=== PATIENT | female | born 1950 | race Caucasian/White ===

== ENCOUNTER → 2020-05-30 | Outpatient (CLI) | payer MEDICARE ==
--- NOTE | 2020-05-30 16:46 | RAD ---
DATE: 05/30/2020 10:20 AM EXAM: MAMMO ROZINA SCREENING BILATERAL HISTORY: Screening COMPARISON: 05/12/2019 Bilateral CC and MLO views of the breasts were performed. Bilateral breast tomosynthesis was performed in CC and MLO projections. This study was interpreted with the benefit of Computerized Aided Detection (CAD). FINDINGS: Breast Density: SCATTERED The breast parenchyma shows scattered fibroglandular densities. Breast parenchyma level B No suspicious masses, microcalcifications or architectural distortion is present to suggest malignancy in either breast. The visualized axillae are unremarkable. IMPRESSION: No mammographic evidence of malignancy. BI-RADS CATEGORY: 1 NEGATIVE RECOMMENDED FOLLOW-UP: 12M 12 MONTH FOLLOW-UP Annual screening mammography is recommended, unless clinically indicated sooner based on symptoms or change in physical exam. PQRS compliance statement: Patient information was entered into a reminder system with a target due date 05/31/2021 for the next mammogram. Mammography is a sensitive method for finding small breast cancers, but it does not detect them all and is not a substitute for careful clinical examination. A negative mammogram does not negate a clinically suspicious finding and should not result in delay in biopsying a clinically suspicious abnormality. "Our facility is accredited by the [employer] Mammography Program."
== END ==
LOC: MAMMO 09:57
PROVIDERS: ATTEND Family Medicine
DX: Z12.31 Encounter for screening mammogram for malignant neoplasm of breast (principal)
CPT/HCPCS: 77063; 77067

== ENCOUNTER → 2020-08-16 | Outpatient (CLI) | payer MEDICARE, OTHER ==
--- NOTE | 2020-08-16 11:07 | RAD ---
Bone mineral density exam History: Postmenopausal Comparison: None Findings: Bone mineral density examination utilizing DEXA was performed. Right hip bone mineral density of 833 mg/cm2 corresponds with a T score -1.0, Z score 0.5. The bone mineral density of the lumbar spine was 1.030 g/cm2 which corresponds with a T-score of -1.3, Z score 0.3. By World [employer] on Osteoporosis criteria, a T score of 0 to-1 SD is considered to be within normal limits. A T score of -1 to -2.5 SD is considered osteopenia. A T score less than -2.5 SD is considered osteoporosis Impression: 1. There is osteopenia of the lumbar spine. Bone mineral density of the right hip corresponds with borderline between normal and osteopenia. Electronically signed by: Jim Harper MD (08/16/2020 11:04 AM) [id number]
--- NOTE | 2020-08-16 11:28 | RAD ---
CT LOW DOSE LUNG SCREENING INDICATION: SMOKER, ANNUAL CHECK UP COMPARISON STUDY: None. TECHNIQUE: Unenhanced axial images were obtained through the lungs and upper abdomen using low dose technique. Coronal and sagittal multiplanar reformatted images were also obtained. PQRS compliance statement: One or more of the following individualized dose reduction techniques were utilized for this examination: 1. Automated exposure control 2. Adjustment of the mA and/or kV according to patient size 3. Use of iterative reconstruction technique FINDINGS: Lung Nodules: Few small indeterminate pulmonary nodules with mortician supplies sales representative nodules as follows: Right upper lobe 4 mm nodule (series 6 image 103) and left lower lobe 3 mm nodule (image 108). Lungs and Airways: No pulmonary mass or consolidation. Centrilobular emphysema. Normal central airways. Pleura: Normal pleural spaces. Heart and Mediastinum: The visualized portions of the thyroid gland are normal in size and attenuation. No axillary or supraclavicular lymphadenopathy. Mildly enlarged AP window lymph node measures 1.1 cm short axis (series 6 image 91). Normal cardiac size. No pericardial effusion. Coronary artery atherosclerotic disease. Atherosclerosis of the thoracic aorta. Abdomen: Cholelithiasis. Left adrenal 1.7 x 2.5 cm adenoma (7 Hounsfield units). Bones and Soft Tissues: Degenerative changes of the spine. IMPRESSION: 1. Few small pulmonary nodules measuring less than 6 mm Lung-RADS Category: 2 Management Recommendation: Follow up low-dose chest CT in one year. 2. Emphysema. 3. Mildly enlarged AP window lymph node of uncertain clinical significance. Attention on follow-up imaging. Electronically signed by: Jim Jean MD (08/16/2020 11:25 AM) [id number]
== END ==
LOC: CT 09:47
PROVIDERS: ATTEND Family Medicine
DX: Z13.820 Encounter for screening for osteoporosis (principal); Z12.2 Encounter for screening for malignant neoplasm of respiratory organs; J43.2 Centrilobular emphysema; M85.88 Other specified disorders of bone density and structure, other site; R91.8 Other nonspecific abnormal finding of lung field; R59.0 Localized enlarged lymph nodes; I25.10 Atherosclerotic heart disease of native coronary artery without angina pectoris; I70.0 Atherosclerosis of aorta; K80.20 Calculus of gallbladder without cholecystitis without obstruction; Z87.891 Personal history of nicotine dependence
CPT/HCPCS: 77080; G0297

== ENCOUNTER 2020-10-29 01:07 | Emergency (ER) | payer MEDICARE, OTHER ==
[~2020-10-29] VITALS: Ht 162.6 cm; Wt 71.6 kg
--- NOTE | 2020-10-29 01:10 | PHYS DOC ---
Past History Past Medical History: Arthritis, Bronchitis, Gallstones, Hypertension, UTI Past Medical History G4,T4,Vaginal, 3 Living, Past Surgical History: Knee Replacement, Other Smoking: Cigarettes General Adult EDM: Chief Complaint: ABDOMINAL PAIN HPI: HPI: ".. I ve been eating the Holiday stuff.. did eat some cake about 8.. and really got bad pain by 10.. ( pm).. I ve had this before.. they thought it could be gall bladder.. " Patient is a 70 year old female who presents with above hx and complaints initially right upper quadrant abdomen pain which was previously diagnosed as biliary colic. Patient did vomit twice before arrival. Patient however reports pain has increased and more diffuse over her upper abdomen. No history of bad food intake. Has been eating to excess this iday. No recent travel. No severe ill contacts. No history immunosuppression. No history of tarry stools. Did have a normal stool today. There is no specific family history of gallbladder disease or kidney stones. Patient does have known history of hypertension, elevated cholesterol, UTI, emphysema and tobacco use. Patient does still smoke. No abdomen surgeries. No trauma. Pt. follows with Dr. Wright. Review of Systems: Review of Systems: Constitutional: Denies fever or chills Eyes: Denies change in visual acuity HENT: Denies nasal congestion or sore throat Respiratory: Denies cough or shortness of breath Cardiovascular: Denies chest pain or edema GI: Complains of right upper quadrant abdominal pain, nausea, vomiting. Denies, bloody stools or diarrhea : Denies dysuria Musculoskeletal: Denies back pain or joint pain Integument: Denies rash Neurologic: Denies headache, focal weakness or sensory changes Endocrine: Denies polyuria or polydipsia Lymphatic: Denies swollen glands Psychiatric: Denies depression or anxiety Family History: Family History: Noncontributory to presentation Current Medications: Current Meds: See nursing for home meds Allergies: Allergies: No known drug allergies Physical Exam: PE: Constitutional: Moderately acute distress, non-toxic appearance. [] HENT: Normocephalic, atraumatic, bilateral external ears normal, oropharynx moist, no oral exudates, nose normal. [] Eyes: PERRLA, EOMI, conjunctiva normal, no discharge. Glasses Neck: Normal range of motion, no tenderness, supple, no stridor. [] Cardiovascular: Bradycardia heart rate regular rhythm, no murmur, PMI to left Lungs & Thorax: Bilateral breath sounds equal apex with scattered wheezes on auscultation [] Abdomen: Bowel sounds decreased, soft, right upper quadrant and epigastric tenderness, no masses, no pulsatile masses. Obese. Rebound to right upper quadrant. Skin: Warm, dry, no erythema, no rash. [] Back: No tenderness, mild right flank CVA tenderness. [] Extremities: No tenderness, no cyanosis, no clubbing, ROM intact, no edema. No psoas sign. Knee scars Neurologic: Alert and oriented X 3, normal motor function, normal sensory function, no focal deficits noted. [] Psychologic: Affect anxious, judgement normal, mood normal. [] EKG: EKG: My interpretation EKG shows a sinus rhythm at 61 bpm. No acute morphology. [] Radiology/Procedures: Radiology/Procedures: [place] [address] IMAGING REPORT Signed PATIENT: SHARRON LOPEZ ACCOUNT: [id number] : 1950 LOCATION: ER AGE: 70 SEX: F EXAM STATUS: REG ER ORD. PHYSICIAN: JOSSELYN GOMEZ MD REASON: Upper abdomen pain, nausea. Omni 300 75cc PROCEDURE: CT ABD PELV W/ORAL&IV CONTRAST CT abdomen pelvis with contrast dated 10/29/2020. No comparison available. CLINICAL INDICATION: Right upper quadrant pain. TECHNIQUE: Contiguous axial imaging the abdomen pelvis performed after the intravenous administration of 75 cc Omnipaque 300. One or more of the following individualized dose reduction techniques were utilized for this examination: 1. Automated exposure control 2. Adjustment of the mA and/or kV according to patient size 3. Use of iterative reconstruction technique Findings: Limited images of the lung bases are clear. Heart size is upper limits of normal. No pleural or pericardial effusion. Liver is homogeneous in attenuation. No apparent hepatic mass. Biliary tree normal in caliber. There calcific stones in the gallbladder lumen. There is also suggestion of mild diffuse gallbladder wall thickening. Spleen is normal in size. Pancreas, right adrenal gland unremarkable. There is a low-density nodule at the left adrenal gland that measures 2.5 cm versus 2.6 cm previously. Right adrenal gland unremarkable. Partially opacified GI tract normal in caliber and contour. No focal bowel wall thickening. The appendix is normal in caliber. No ascites or lymphadenopathy. Abdominal aorta normal in caliber. Images of pelvis show nondistended urinary bladder. Uterus and adnexa are unremarkable. No free pelvic fluid or pelvic lymphadenopathy. Bone windows show no acute findings. Multilevel spondylosis. IMPRESSION: 1. Cholelithiasis with mild diffuse gallbladder wall thickening. Acute cholecystitis cannot be excluded. 2. Otherwise no acute abnormality. Normal appendix. 3. Stable size of left adrenal adenoma. Electronically signed by: Richi Good MD (10/29/2020 3:23 AM) [facility]ITALSecurusWes DICTATED AND SIGNED BY: RICHI GOOD MD DATE: 10/29/20317 CC: CHARLIE WRIGHT MD; JOSSELYN GOMEZ MD ~MTH0 0 [][place] [address] IMAGING REPORT Signed PATIENT: SHARRON LOPEZ ACCOUNT: [id number] : 1950 LOCATION: ER AGE: 70 SEX: F EXAM STATUS: REG ER ORD. PHYSICIAN: JOSSELYN GOMEZ MD REASON: Upper abdomen pain, nausea PROCEDURE: ACUTE ABDOMEN SERIES Abdominal Series dated 10/29/2020. No comparison available. Clinical Indication: Abdominal pain. Findings: Single upright PA view the chest shows normal heart and mediastinal contours. The lungs are clear without focal consolidation. Vascular interstitium is within normal limits. Flat and upright views of the abdomen show nondilated gas filled loops of bowel. No air-fluid level on the upright view. There are calcific densities in the right upper quadrant consistent with gallstones. No abnormal calcifications are identified. There is no evidence of pneumoperitoneum. Impression chest: No acute radiographic abnormality. Impression abdomen: Non-obstructive bowel gas pattern. Cholelithiasis. Electronically signed by: Richi Good MD (10/29/2020 1:37 AM) [facility]ALS[facility]artNASRIN DICTATED AND SIGNED BY: RICHI GOOD MD DATE: 10/29/20135 CC: CHARLIE WRIGHT MD; JOSSELYN GOMEZ MD ~MTH0 0 Heart Score: HEART Score for Chest Pain: HEART Score for Chest Pain Response (Comments) Value History Slighlty/Non-Suspicious 0 ECG Normal 0 Age > 65 2 Risk Factors 1 or 2 Risk Factors 1 Total 3 Risk Factors: Risk Factors: DM, Current or recent (<one month) smoker, HTN, HLP, family history of CAD, obesity. Risk Scores: Score 0 - 3: 2.5% MACE over next 6 weeks - Discharge Home Score 4 - 6: 20.3% MACE over next 6 weeks - Admit for Clinical Observation Score 7 - 10: 72.7% MACE over next 6 weeks - Early Invasive Strategies Course & Med Decision Making: Course & Med Decision Making Pertinent Labs and Imaging studies reviewed. (See chart for details) Patient declines admission and transfer to [facility] for surgical consult. Patient carries stay on a clear fluid diet for the next 2 days. No solids or milk products. No high-fat meals afterwards. Take Tylenol and ibuprofen as needed for pain. Marked pain may take Vicoprofen. Take Pepcid 20 mg twice a day. Strongly encouraged patient to stop smoking. May take Zofran 8 mg up to 4 times a day for active vomiting. Patient return if any concerns. Recommend patient have outpatient ultrasound gall bladder functional testing and surgical consult. Did advise pt. she most likely she will eventually need cholecystectomy. Impression: 1. Abdomen Pain 2. Hx. Gall Stones 3. Biliary colic 4. History of hypertension 5. Emphysema 6. Tobacco use [] Dragon Disclaimer: Dragon Disclaimer: This electronic medical record was generated, in whole or in part, using a voice recognition dictation system. Departure Departure: Referrals: CHARLIE WRIGHT MD (PCP) Scripts Hydrocodone/Ibuprofen (HYDROCODONE-IBUPROFEN 7.5-200 ) 1 Each Tablet 1 TAB PO PRN Q6HRS PRN for PAIN, #30 TAB 0 Refills Prov: JOSSELYN GOMEZ MD 10/29/20 Ondansetron Hcl (ZOFRAN) 4 Mg Tablet 8 MG PO QIDPRN PRN for NAUSEA/VOMITING, #30 TAB Prov: JOSSELYN GOMEZ MD 10/29/20 Famotidine (PEPCID) 20 Mg Tablet 20 MG PO BID for gerd for 30 Days, #60 TAB Prov: JOSSELYN GOMEZ MD 10/29/20 Prema Disclaimer This chart was dictated in whole or in part using Voice Recognition software in a busy, high-work load, and often noisy Emergency Department environment. It may contain unintended and wholly unrecognized errors or omissions. Dragon Disclaimer This chart was dictated in whole or in part using Voice Recognition software in a busy, high-work load, and often noisy Emergency Department environment. It may contain unintended and wholly unrecognized errors or omissions. Dragon Disclaimer This chart was dictated in whole or in part using Voice Recognition software in a busy, high-work load, and often noisy Emergency Department environment. It may contain unintended and wholly unrecognized errors or omissions. JOSSELYN GMOEZ MD Oct 29, 2020 01:10
[2020-10-29] MEDS ORDERED: FAMOTIDINE 20 MG/2 ML VIAL IVP ONE (01:15)
[2020-10-29] MEDS ORDERED: IV RINGERS SOLUTION,LACTATED 1,000 ML IV SCH (01:15)
[2020-10-29] MEDS ORDERED: ONDANSETRON PF 4 MG/2 ML VIAL. IVP ONE (01:15)
[2020-10-29] MEDS ORDERED: MORPHINE SULFATE 10 MG/ML SYRINGE. SQ ONE ×2 (01:30→02:00)
--- NOTE | 2020-10-29 01:40 | RAD ---
Abdominal Series dated 10/29/2020. No comparison available. Clinical Indication: Abdominal pain. Findings: Single upright PA view the chest shows normal heart and mediastinal contours. The lungs are clear wit hout focal consolidation. Vascular interstitium is within normal limits. Flat and upright views of the abdomen show nondilated gas filled loops of bowel. No air-fluid level o n the upright view. There are calcific densities in the right upper quadrant consistent with gallston es. No abnormal calcifications are identified. There is no evidence of pneumoperitoneum. Impression chest: No acute radiographic abnormality. Impression abdomen: Non-obstructive bowel gas pattern. Cholelithiasis. Electronically signed by: Richi Good MD (10/29/2020 1:37 AM) [facility] CENTERAVINASH
[2020-10-29] MEDS ORDERED: MAGNESIUM HYDROXIDE 2,400 MG/30 ML ORAL.SUSP. PO ONE (01:45)
[2020-10-29 02:03] LABS: BASO # 0.1 x10^3/uL (0.0-0.2); BASO % 1 % (0-3); EOS # 0.1 x10^3/uL (0.0-0.7); EOS % 1 % (0-3); HEMATOCRIT 45.5 % (36.0-47.0); HEMOGLOBIN 14.7 g/dL (12.0-15.5); LYMPH % 27 % (24-48); MEAN CORPUSCULAR HEMOGLOBIN 29 pg (25-35); MEAN CORPUSCULAR HGB CONC 32 g/dL (31-37); MEAN CORPUSCULAR VOLUME 90 fL (79-100); MONO # 0.6 x10^3/uL (0.0-1.1); MONO % 6 % (0-9); NEUT # 7.5 x10^3uL (1.8-7.7); NEUT % 66 % (31-73); PLATELET COUNT 272 x10^3/uL (140-400); RED BLOOD COUNT 5.03 x10^6/uL (3.50-5.40); RED CELL DISTRIBUTION WIDTH 13.5 % (11.5-14.5); WHITE BLOOD COUNT 11.3 x10^3/uL (4.0-11.0)
[2020-10-29 02:10] LABS: CALCIUM 9.5 mg/dL (8.5-10.1); CREATININE 0.9 mg/dL (0.6-1.0); GFR 61.5; POTASSIUM 4.5 mmol/L (3.5-5.1)
[2020-10-29] MEDS ORDERED: IOHEXOL 240 MG/ML 50ML VIAL. PO ONE (02:15)
[2020-10-29] MEDS ORDERED: IOHEXOL 300 MG/ML 75 ML VIAL. IV ONE (02:15)
[2020-10-29] MEDS ORDERED: CONTRAST GIVEN. MC PRN (02:15)
[2020-10-29 02:17] LABS: ALBUMIN 3.8 g/dL (3.4-5.0); DIRECT BILIRUBIN 0.1 mg/dL (0.0-0.2); TOTAL BILIRUBIN 0.2 mg/dL (0.2-1.0); TOTAL PROTEIN 7.6 g/dL (6.4-8.2)
[2020-10-29 03:22] LABS: BARBITURATES NEG (NEG); BENZODIAZEPINES NEG (NEG); CANNABINOIDS NEG (NEG); COCAINE NEG (NEG); METHADONE NEG (NEG); OPIATES POS (NEG); PHENCYCLIDINE NEG (NEG)
[2020-10-29 03:24] LABS: AMPHETAMINE/METHAMPHETAMINE NEG (NEG)
--- NOTE | 2020-10-29 03:25 | RAD ---
CT abdomen pelvis with contrast dated 10/29/2020. No comparison available. CLINICAL INDICATION: Right upper quadrant pain. TECHNIQUE: Contiguous axial imaging the abdomen pelvis performed after the intravenous administration of 75 cc O mnipaque 300. One or more of the following individualized dose reduction techniques were utilized for this examinat ion: 1. Automated exposure control 2. Adjustment of the mA and/or kV according to patient size 3. Use of iterative reconstruction technique Findings: Limited images of the lung bases are clear. Heart size is upper limits of normal. No pleural or peric ardial effusion. Liver is homogeneous in attenuation. No apparent hepatic mass. Biliary tree normal in caliber. There calcific stones in the gallbladder lumen. There is also suggestion of mild diffuse gallbladder wall t hickening. Spleen is normal in size. Pancreas, right adrenal gland unremarkable. There is a low-density nodule a t the left adrenal gland that measures 2.5 cm versus 2.6 cm previously. Right adrenal gland unremarka ble. Partially opacified GI tract normal in caliber and contour. No focal bowel wall thickening. The appen jasmina is normal in caliber. No ascites or lymphadenopathy. Abdominal aorta normal in caliber. Images of pelvis show nondistended urinary bladder. Uterus and adnexa are unremarkable. No free pelvi c fluid or pelvic lymphadenopathy. Bone windows show no acute findings. Multilevel spondylosis. IMPRESSION: 1. Cholelithiasis with mild diffuse gallbladder wall thickening. Acute cholecystitis cannot be exclud ed. 2. Otherwise no acute abnormality. Normal appendix. 3. Stable size of left adrenal adenoma. Electronically signed by: Richi Good MD (10/29/2020 3:23 AM) MAX
[2020-10-29 03:57] LABS: BILIRUBIN,URINE NEG (NEG); CLARITY,URINE CLEAR; COLOR,URINE YELLOW; GLUCOSE,URINE NEG (NEG)
[2020-10-29 03:58] LABS: BACTERIA,URINE 0 /HPF (0-FEW); NITRITE,URINE NEG (NEG); RBC,URINE OCC /HPF (0-2); SQUAMOUS EPITHELIAL CELL,UR FEW /LPF; UROBILINOGEN,URINE 0.2 mg/dL (0.2 mg/dL); WBC,URINE 0 /HPF (0-4)
[2020-10-29] MEDS ORDERED: ONDA4TAB7 PO (04:18)
[2020-10-29] MEDS ORDERED: FAMO-63 PO (04:18)
[2020-10-29] MEDS ORDERED: HYDR-1179 PO (04:18)
[2020-10-29 04:34] VITALS: BP 144/88
--- NOTE | 2020-10-29 06:13 | EKG ---
[address] [address] Test Date: 2020-10-29 Test Time: 01:37:34 Pat Name: SHARRON LOPEZ Department: Room: Gender: F [employer]: CELINE : 1950 Requested By: JOSSELYN GOMEZ Order Number: [id number] Reading MD: Measurements Intervals [place] Rate: 61 P: 68 ND: 166 QRS: 63 QRSD: 102 T: 40 QT: 440 QTc: 444 Interpretive Statements SINUS RHYTHM NORMAL ECG RI6.02 No previous ECG available for comparison
== END 2020-10-29 04:33 | disposition home or self-care (01) ==
LOC: ER 01:07
DX: K80.50 Calculus of bile duct without cholangitis or cholecystitis without obstruction (principal); J43.9 Emphysema, unspecified; I10 Essential (primary) hypertension; M19.90 Unspecified osteoarthritis, unspecified site; Z87.440 Personal history of urinary (tract) infections; F17.210 Nicotine dependence, cigarettes, uncomplicated
CPT/HCPCS: 36415; 74022; 74177; 80048; 80076; 80307; 81001; 82550; 83690; 84484; 85025; 85610; 85730; 93005; 96361; 96372; 96374; 96375; 99285; J2270; J2405; J3490; J7120; Q9966; Q9967

== ENCOUNTER → 2021-05-31 | Outpatient (CLI) | payer MEDICARE, OTHER ==
[~2021-05-31] MED LIST: FAMO-63 PO; HYDR-1179 PO; ONDA4TAB7 PO
--- NOTE | 2021-05-31 10:34 | RAD ---
CT THORAX WO INDICATION: ABNORMAL PULMONARY FUNCTION STUDY, HX OF NICOTINE USE X57 YRS COMPARISON STUDY: CT chest 08/16/2020. TECHNIQUE: Unenhanced axial images were obtained through the lungs and upper abdomen. Coronal and sa gittal multiplanar reconstructions were also obtained. PQRS compliance statement: One or more of the following individualized dose reduction techniques were utilized for this examinat ion: 1. Automated exposure control 2. Adjustment of the mA and/or kV according to patient size 3. Use of iterative reconstruction technique FINDINGS: Lungs and Airways: No pulmonary mass or consolidation. Few small pulmonary nodules remain stable with leasing representative nodule as follows: Right upper lobe 3 mm nodule (series 2 image 36). Centrilobular em physema. Normal central airways. Pleura: The pleural spaces are normal. Heart and Mediastinum: Stable subcentimeter right thyroid nodule. No axillary or supraclavicular lymp hadenopathy. Few conspicuous but not pathologically enlarged by CT criteria mediastinal lymph nodes. Normal cardiac size. No pericardial effusion. Coronary artery atherosclerotic disease. Sclerosis of t he thoracic aorta and branch vessels. Abdomen: Cholecystectomy. Stable left adrenal 2.5 cm adenoma. Bones and Soft Tissues: Degenerative changes of the spine. IMPRESSION: 1. No pulmonary mass or consolidation. 2. Few tiny pulmonary nodules which remain stable. 3. Centrilobular emphysema. Electronically signed by: Jim Jean MD (05/31/2021 10:31 AM) [id number]
--- NOTE | 2021-05-31 15:07 | RAD ---
PROCEDURE: MG BILAT SCREEN+ROZINA HISTORY: The patient is 71 years old and is seen for Reason: SCREENING / Spl. Instructions: / Histor y: . COMPARISON: May 30, 2020 TECHNIQUE: CC and MLO views of both breasts were obtained. Images were processed by the [employer] computer-aided detection system. DENSITY: There are scattered fibroglandular densities. FINDINGS: No developing mass, suspicious calcifications or architectural distortion. IMPRESSION: Negative. No evidence of malignancy. Recommend annual screening mammograms per [employer] guidelines. BI-RADS category 1 Negative Patient entered into a reminder system for annual screening mammogram. Electronically signed by: Nikhil Waters DO (05/31/2021 3:05 PM) [id number]
== END ==
LOC: MAMMO 09:36
PROVIDERS: ATTEND Family Medicine
DX: Z12.31 Encounter for screening mammogram for malignant neoplasm of breast (principal); R91.8 Other nonspecific abnormal finding of lung field; J43.2 Centrilobular emphysema; E04.1 Nontoxic single thyroid nodule; I25.10 Atherosclerotic heart disease of native coronary artery without angina pectoris; R94.2 Abnormal results of pulmonary function studies
CPT/HCPCS: 71250; 77063; 77067

== ENCOUNTER → 2022-01-08 | Outpatient (CLI) | payer MEDICARE, OTHER ==
--- NOTE | 2022-01-08 13:02 | RAD ---
KNEE 3 VIEWS RIGHT Clinical Indication: Knee pain, no known injury. Comparison: None. Findings: There is no acute fracture or dislocation. There is mild narrowing of the medial compartment. There a re small marginal osteophytes. The patella is in anatomic position. There is no soft tissue abnormali ty. There is a small amount of joint fluid. IMPRESSION: 1. No acute fracture. 2. Mild medial compartment arthropathy. 3. Small joint effusion. Electronically signed by: Maxim Barth MD (01/08/2022 1:00 PM) [id number]
== END ==
LOC: RAD 11:16
PROVIDERS: ATTEND Physician Assistant
DX: M12.861 Other specific arthropathies, not elsewhere classified, right knee (principal); M25.461 Effusion, right knee
CPT/HCPCS: 73562

== ENCOUNTER → 2022-02-05 | Outpatient (CLI) | payer MEDICARE, OTHER ==
--- NOTE | 2022-02-05 15:07 | RAD ---
EXAMINATION: US DPLX VENOUS EXTREMITY LOWER RT (LOWER EXTREMITY VENOUS ULTRASOUND) CLINICAL HISTORY: Right lower extremity pain. TECHNIQUE: Sonographic grayscale images obtained of the right lower extremity deep venous system with color flow Doppler, compression, and augmentation techniques as indicated. Images obtained and stor ed in a permanent archive. COMPARISON: None FINDINGS: Occlusive thrombus in one of the posterior tibial veins in the mid to distal leg. Peroneal veins poor ly visualized and may also be at least partially occluded. No evidence of absent flow or incompressibility within the common femoral vein, femoral vein, or popl iteal vein. IMPRESSION: Occlusive DVT in one of the right posterior tibial veins in the mid to distal leg. Poorly visualized peroneal veins may also be at least partially occluded. Claims Attorney (FRITZ) discussed findings with the ordering provider's office immediately following the exa m. Electronically signed by: Jordan Dodson DO (02/05/2022 3:05 PM) [id number]
== END ==
LOC: RAD 14:27
PROVIDERS: ATTEND Family Medicine
DX: I82.401 Acute embolism and thrombosis of unspecified deep veins of right lower extremity (principal)
CPT/HCPCS: 93971